=== PATIENT | female | born 1980 | race Caucasian/White ===

== ENCOUNTER → 2016-07-10 | Outpatient (CLI) | payer OTHER ==
[~2016-07-10] MED LIST: BCP
--- NOTE | 2016-07-10 11:09 | Diagnostic Imaging Report ---
INDICATION: Pelvic pain. EXAMINATION: Transabdominal and endovaginal pelvic sonogram. FINDINGS: The uterus measures 10.2 x 6.7 x 4.1 cm. The endometrial stripe is 5 mm. The ovaries are normal in size and have normal blood flow. There is no free fluid. IMPRESSION: Negative pelvic sonogram. Dictated by: Dictated on workstation # [id number]
== END ==
LOC: RAD 10:08
PROVIDERS: ATTEND Nurse Practitioner
DX: M54.9 Dorsalgia, unspecified (principal); R10.2 Pelvic and perineal pain
CPT/HCPCS: 76830; 76856

== ENCOUNTER 2016-09-05 07:59 | Outpatient (CLI) | payer OTHER ==
[~2016-09-05] VITALS: Ht 160 cm; Wt 70.5 kg
[2016-09-05 08:14] VITALS: BP 107/78
[2016-09-05 08:39] LABS: BASOPHILS % (AUTO) 0 % (0-10); EOSINOPHILS # (AUTO) 0.1 10^3/uL (0.0-0.3); EOSINOPHILS % (AUTO) 2 % (0-10); LYMPHOCYTES # (AUTO) 1.8 X 10^3 (1.0-4.0); LYMPHOCYTES % (AUTO) 31 % (12-44); MEAN CORPUSCULAR HEMOGLOBIN 31 PG (25-34); MEAN CORPUSCULAR HGB CONC 34 G/DL (32-36); MEAN CORPUSCULAR VOLUME 93 FL (80-99); MEAN PLATELET VOLUME 10.9 FL (7.4-10.4); MONOCYTES # (AUTO) 0.5 X 10^3 (0.0-1.0); MONOCYTES % (AUTO) 9 % (0-12); NEUTROPHILS # (AUTO) 3.3 X 10^3 (1.8-7.8); NEUTROPHILS % (AUTO) 58 % (42-75); PLATELET COUNT 190 10^3/uL (130-400); RED BLOOD COUNT 4.21 10^6/uL (4.35-5.85); RED CELL DISTRIBUTION WIDTH 12.6 % (10.0-14.5); WHITE BLOOD COUNT 5.7 10^3/uL (4.3-11.0)
== END 2016-09-05 10:06 | disposition home or self-care (01) ==
LOC: PREOP 07:59
PROVIDERS: ATTEND Obstetrics & Gynecology
DX: Z01.812 Encounter for preprocedural laboratory examination (principal); Z11.2 Encounter for screening for other bacterial diseases; N81.4 Uterovaginal prolapse, unspecified
CPT/HCPCS: 36415; 85025; 86850; 86900; 86901; 87081

== ENCOUNTER 2016-09-12 06:30 | Day surgery (SDC) | payer OTHER ==
[~2016-09-12] VITALS: Ht 160 cm; Wt 70.5 kg
[2016-09-12] MEDS ORDERED: ATRACURIUM 50 MG/5 ML (TRACRIUM) IV ONE (06:43)
[2016-09-12 06:45] VITALS: BP 101/77
[2016-09-12] MEDS ORDERED: DEXAMETHASONE PF 10 MG/ML (DECADRON) VIAL ONE (06:46)
[2016-09-12] MEDS ORDERED: LIDOCAINE PF 2% 5 ML (XYLOCAINE) VIAL ONE (06:46)
[2016-09-12] MEDS ORDERED: SEVOFLURANE (ULTANE) 15 ML INHAL SOLN ONE ×7 (06:46→10:00)
[2016-09-12] MEDS ORDERED: HURRICAINE EXT TUBE (BENZOCAINE) ONE (06:46)
[2016-09-12] MEDS ORDERED: proPOfol 200 MG/20 ML (DIPRIVAN) VIAL IV ONE (06:46)
[2016-09-12] MEDS ORDERED: fentaNYL INJECTION 100 MCG/2 ML AMP ONE (06:47)
[2016-09-12] MEDS ORDERED: MIDAZOLAM 2 MG/2 ML (VERSED) VIAL ONE (06:48)
[2016-09-12] MEDS: LACTATED RINGERS 1,000 ML IV PRN ×2 (06:55→09:30)
[2016-09-12] MEDS ORDERED: metroNIDAZOLE 500 MG/100 ML IVPB (PRE-MIX) IV ONE (07:00)
[2016-09-12] MEDS ORDERED: ceFAZolin 1 GM/NS 50 ML IVPB IV ONE ×2 (07:00)
--- NOTE | 2016-09-12 07:01 | Progress Note-Pre Operative ---
Pre-Operative Progress Note H&P Reviewed The H&P was reviewed, patient examined and no changes noted. Date Seen by Provider: Sep 12, 2016 Time Seen by Provider: 07:00 Date H&P Reviewed: Sep 12, 2016 Time H&P Reviewed: 07:00 Pre-Operative Diagnosis: Uterine prolapse, Enlarged uterus, Pelvic pressure CANDIDO LAKE DO Sep 12, 2016 7:01 am
[2016-09-12] MEDS ORDERED: BUPIVACAINE 0.25% 30 ML (SENSORCAINE) VIAL ONE (07:52)
[2016-09-12] MEDS ORDERED: GLYCOPYRROLATE 0.2 MG/ML (ROBINUL) 2 ML VIAL ONE (09:05)
[2016-09-12] MEDS ORDERED: morphine INJ 10 MG/ML 1ML (SYR OR VIAL) ONE (10:02)
[2016-09-12] MEDS ORDERED: LACTATED RINGERS 1,000 ML IV SCH (10:03)
[2016-09-12] MEDS ORDERED: DOCU100C37 PO (10:13)
[2016-09-12] MEDS ORDERED: IBUP-1773 PO (10:13)
[2016-09-12] MEDS ORDERED: HYDR-3816 PO (10:13)
[2016-09-12] MEDS ORDERED: SIME80TA16 PO (10:13)
[2016-09-12] MEDS ORDERED: CHLORASEPTIC LOZENGE MM PRN (10:15)
[2016-09-12] MEDS ORDERED: SIMETHICONE 80 MG (MYLICON) CHEW PO PRN (10:15)
[2016-09-12] MEDS ORDERED: ANTACID SUSP 30 ML UDC (MYLANTA) PO PRN (10:15)
[2016-09-12] MEDS ORDERED: ZOLPIDEM 5 MG (AMBIEN) TAB PO PRN (10:15)
[2016-09-12] MEDS ORDERED: DOCUSATE SODIUM 100 MG (COLACE) CAP PO PRN (10:15)
[2016-09-12] MEDS ORDERED: ONDANSETRON 4 MG/2 ML (SDV) Z0FRAN IV PRN (10:15)
--- NOTE | 2016-09-12 10:15 | Discharge Inst-Women's Service ---
Discharge Inst-Women's Serv Depart Medication/Instructions New, Converted or Re-Newed RX: RX on Chart Consults/Follow Up Additional Follow Up: Yes Orders/Referrals Dr. Sullivan in 7-10 days and 8 weeks Activity Activity: Activity as Tolerated Driving Instructions: No Driving for 1 Week NO SMOKING: NO SMOKING Nothing Inside Vagina: No Douching, No [place], No Tampons Diet Discharge Diet: No Restrictions Symptoms to Report to : Bleeding Excessive, Pain Increased, Fever Over 101 Degrees F, Vaginal Bleeding Increase, Questions/Concerns For Any Problems or Questions: Contact Your Physician Skin/Wound Care Infection Signs and Symptoms: Increased Redness, Foul Odor of Wound, Increased Drainage, Skin Itchy or Has a Rash, Increased Swelling, Temperature Above 101 F Operative Area Clean and Dry: Keep Incision Clean/Dry Stitches/Bren/Dermabond: Dermabond, Care of Stitches Bathing Instructions: CANDIDO Berumen DO Sep 12, 2016 10:15
[2016-09-12] MEDS: morphine INJ 10 MG/ML 1ML (SYR OR VIAL) IVP PRN ×3 (10:22→10:39)
[2016-09-12] MEDS: KETOROLAC 30 MG/ML VIAL IV PRN ×2 (10:27→16:58)
--- NOTE | 2016-09-12 10:32 | Progress Note-Post Operative ---
Post-Operative Progess Note Surgeon (s)/Planer Offbearer (s) Surgeon CANDIDO LAKE DO Planer Offbearer: Gayla OWUSUP Pre-Operative Diagnosis Uterine prolapse, Enlarged uterus, Pelvic pressure Post-Operative Diagnosis RATLH w bilateral salpingectomy Procedure & Operative Findings Date of Procedure 09/12/16 Procedure Performed/Findings see dictation Anesthesia Type GETA Estimated Blood Loss Estimated blood loss (mL): min Specimens/Packing Specimens Removed uterus, tubes, and ovaries CANDIDO LAKE DO Sep 12, 2016 10:32
[2016-09-12] MEDS ORDERED: MEPERIDINE (DEMEROL) INJ 50 MG/ML ONE (10:54)
[2016-09-12] MEDS ORDERED: MEPERIDINE (DEMEROL) INJ 50 MG/ML IVP PRN (11:00)
[2016-09-12 11:30] VITALS: BP 94/65
--- NOTE | 2016-09-12 11:46 | OPERATIVE REPORT ---
DATE OF SERVICE: PREOPERATIVE DIAGNOSES: 1. A 36-year-old female with uterine prolapse. 2. Enlarged uterus. 3. Pelvic pressure. POSTOPERATIVE DIAGNOSES: 1. A 36-year-old female with uterine prolapse. 2. Enlarged uterus. 3. Pelvic pressure. PROCEDURE: Robotic assisted total laparoscopic hysterectomy with bilateral salpingectomy. SURGEON: Dr. Edson Sullivan. ROLLING UP MACHINE OPERATOR: MARISOL Ag whose required assistance was necessary to complete the procedure. ANESTHESIA: General endotracheal. ESTIMATED BLOOD LOSS: Minimal. URINE OUTPUT: 300 mL. PRIOR TO THE PROCEDURE FLUIDS: 1,600 mL lactated ringer solution. FINDINGS: A bulky and hyperemic appearing uterus which is grossly normal, a degree of prolapse down to the level of the fascial introitus, grossly normal appearing bilateral ovaries, grossly normal appearing bilateral fallopian tubes, grossly normal appearing upper abdominal anatomy on brief scan of evaluation. SPECIMENS SENT: Uterus, bilateral fallopian tubes. INDICATIONS FOR PROCEDURE: This 36-year-old female was a consultation in my office from Gayla Jean-Baptiste, our nurse practitioner, for ongoing issues with pelvic pressure, pain with intercourse, and prolapse that was found on her annual exam. The patient had been extensively counseled about alternatives includes pessary replacement; however due to her age and her sexual activity, pessary replacement was not a good option for her and her lifestyle. We also discussed with the patient hysterectomy with colposuspension technique at the time of hysterectomy. Risk of this procedure was discussed with the patient. Details included the risk of bleeding, infection, damage to surrounding structures including but not limited to bowel, bladder, ureter, kidneys, risks from anesthesia, risks for need for blood transfusion, postoperative hematoma formation, DVT formation, fistula formation and even . After everything was discussed with the patient in detail, all of her questions were answered with her and her present, consent was obtained. The patient was taken to the operative room. OPERATIVE REPORT IN DETAIL: The patient was taken to the operating room. General anesthesia was found to be adequate, was placed in the dorsal lithotomy position, prepped and draped in the normal sterile fashion. A Amaya catheter was placed using sterile technique. A weighted speculum was inserted into the patient's vagina. A right angle retractor is used to visualize the cervix, grasped at the 12 o'clock position using a long Allis clamp. I then gently sounded the uterine cavity. It was found to be 8 cm and gently dilated the cervix using Hegar dilators. I then selected 8 cm Hilaria uterine manipulator tip and a 4 cm colpotomy ring and placed it within the uterine cavity deploying the intrauterine balloon and advancing the colpotomy ring around the vaginal fornix. Once this was in place, excellent uterine manipulation was noted on bimanual examination. I then performed a change of gloves and directed by attention to the abdomen where infraumbilical area infiltrated using 1/4% Marcaine, made an 8 mm incision and directed a Veress needle through this incision until intraperitoneal placement was confirmed using the saline drop test. I then proceeded with insufflation using CO2 gas. The open pressure was 30 mmHg. I proceed to a maximum pressure of 50 mmHg at which point I removed the Veress needle and introduced an 8 mm blunt Di Gabrielle camera trocar. Once this was in place, I am able to confirmed intraperitoneal placement using the Di Gabrielle laparoscope. I then placed 2 lateral trocars using both 8 mm trocars. The skin is infiltrated using 1/4% Marcaine approximately 8 cm lateral to my infraumbilical trocar. Incisions are made using the knife and trocars are placed under direct visualization laparoscopically. Once the trocars are in place, I had the patient placed in a steep Trendelenburg in order to visualize all adequate anatomy to perform the procedure as scheduled. I then brought in the Da Gabrielle robot and docked in appropriate fashion placing the Da Heatmaps vessel sealer in the left hand and the monopolar tatiana in the right hand. I then performed the following dissection bilaterally at the operative console. Starting at the mesosalpinx, I created a hole in this using monopolar tatiana and directed this hole laterally amputating the fallopian tube from the mesosalpinx and its surrounding blood supply using the vessel sealer. I then grasped the uteroovarian ligament, bipolar cauterizing it using the vessel sealer. I grabbed the round ligament, bipolar cauterized this and transected it using the vessel sealer. I then grabbed the broad ligament and bipolar cauterized this and transected it using the vessel sealer down to the level of the lower uterine segment at which point I the anterior and posterior leaflets of the broad ligament. The anterior leaflet was taken around to the anterior vaginal fornix. The posterior leaflet was taken around the posterior vaginal fornix. This allows me to skeletonized the uterine vessels bilaterally and bipolar cauterized them and transected them using the vessel sealer. I then performed a colpotomy at the 12 o'clock position and able to visualize the Hilaria colpotomy ring. I take this around the colpotomy ring using monopolar ttaiana, amputating the cervix away from the vaginal fornix. The entire specimen was then removed through the vagina. I then proceeded with closing the vaginal opening. The lateral vaginal apices of the vaginal cuff are closed using 2-0 Vicryl suture in a figure of eight fashion. Colposuspension them to the uterosacral ligaments. I then closed the remainder of the vaginal cuff using 2-0 V lock in normal fashion after which there was no active bleeding noted from the dissection planes. I removed the Da Gabrielle instruments, the needles, and undocked the Da Gabrielle robot and proceeded with the remainder of the case laparoscopically. I copiously irrigated the pelvis using normal saline. There was no active bleeding noted from any dissection planes. I put FloSeal hemostatic agent over my planes of dissection and had the patient taken out of steep Trendelenburg where I removed insufflation to the infraumbilical trocar after removing the lateral trocars under direct visualization laparoscopically. I then introduced 10 mL of 1/4% Marcaine into the intraperitoneal cavity for postoperative pain management and removed the infraumbilical trocar. I then closed the skin incision using 4-0 Monocryl in interrupted subcuticular stitches. Dermabond was applied to the incision and Band-Aids were placed over these. The patient tolerated the procedure well, sent to recovery in stable condition with Amaya catheter still in place. Lap and sponge counts correct at the end of the procedure. Instrument count was correct as well. 1 gram of Ancef and 500 mg of Flagyl given preoperatively for infection prophylaxis. Job ID: [id number] DocumentID: [id number] Dictated Date: 09/12/2016 10:39:05 Feeder Worker Power Unit Operator Date: 09/12/2016 11:45:54 Dictated By: DO PIERRE WADE
[2016-09-12 12:15] VITALS: BP 93/60
[2016-09-12] MEDS: HYDROcodone/APAP 7.5 MG/325 MG (LORTAB, LORCET PLUS) TABLET PO PRN ×3 (13:24→19:19)
[2016-09-12 13:40] VITALS: BP 99/66
[2016-09-12 17:00] VITALS: BP 92/61
[2016-09-13] MEDS ORDERED: IBUPROFEN 600 MG (MOTRIN) TAB PO PRN (02:45)
--- OUTSIDE RECORDS SUMMARY | 2016-09-17 19:47 | XMS REPORT | Continuity of Care Document ---
Author Author [facility] Organization [facility] Address Unknown Phone Unavailable Allergies Active Description Code Type Severity Reaction Onset Reported/Identified Relationship to Patient Clinical Status Yes promethazine [id number] Drug Allergy Unknown N/A 08/25/2013 Yes promethazine [id number] Drug Allergy Moderate EPS 09/05/2016 Medications Problems Date Dx Coded Attending Type Code Diagnosis Diagnosed By 08/25/2013 NANDA BECK DO Ot 785.1 PALPITATIONS 08/25/2013 NANDA BECK DO Ot 786.59 CHEST PAIN NEC 11/23/2013 NANDA EBCK DO Ot 785.1 PALPITATIONS 05/13/2014 MIKKI DAVIES MD Ot 780.60 05/13/2014 MIKKI DAVIES MD Ot 786.50 06/23/2014 Ot 782.62 07/18/2014 KING MIXON Ot 625.8 07/18/2014 LUCIA MONTERO, WALESKA Youngblood Ot 530.81 07/18/2014 WALESKA MYERS MD Ot 786.05 07/18/2014 WALESKA MYERS MD Ot 789.06 07/18/2014 Ot 785.1 07/18/2014 WALESKA MYERS MD Ot 793.11 07/18/2014 MIKKI DAVIES MD Ot 780.60 07/18/2014 MIKKI DAVIES MD Ot 786.50 07/18/2014 Ot 782.62 08/04/2014 KING MIXON Ot 611.72 09/08/2014 MIKKI DAVIES MD Ot 780.60 09/08/2014 MIKKI DAVIES MD Ot 786.50 02/10/2015 Ot 782.62 05/24/2015 MIKKI DAVIES MD Ot 780.60 05/24/2015 MIKKI DAVIES MD Ot 786.50 05/24/2015 Ot 782.62 05/24/2015 [facility] Ot 611.72 08/04/2015 ORAL, KING Ram[facility] ATTEND[facility] Ot R53.83 OTHER FATIGUE 07/08/2016 ORAL [facility] ATTENDANT Ot 625.8 FEM GENITAL SYMPTOMS NEC 07/08/2016 LUCIA MONTERO, WALESKA Youngblood Ot 530.81 ESOPHAGEAL REFLUX 07/08/2016 LUCIA MONTERO, WALESKA Youngblood Ot 786.05 SHORTNESS OF BREATH 07/08/2016 LUCIA MONTERO, WALESKA Youngblood Ot 789.06 ABDOMINAL PAIN, EPIGASTRIC 07/08/2016 Ot 785.1 PALPITATIONS 07/08/2016 WALESKA MYERS MD Ot 793.11 SOLITARY PULMONARY NODULE 07/08/2016 MIKKI DAVIES MD Ot 780.60 FEVER, UNSPECIFIED 07/08/2016 MIKKI DAVIES MD Ot 786.50 CHEST PAIN NOS 07/08/2016 Ot 782.62 FLUSHING 07/10/2016 MIKKI DAVIES MD Ot 780.60 FEVER, UNSPECIFIED 07/10/2016 MIKKI DAVIES MD Ot 786.50 CHEST PAIN NOS 07/10/2016 Ot 782.62 FLUSHING 07/10/2016 ORAL [facility] ATTENDANT Ot 611.72 LUMP OR MASS IN BREAST 07/10/2016 [facility] M[facility] ATTENDANT Ot R53.83 OTHER FATIGUE 07/12/2016 QUICK, KING [facility] ATTEND[facility] Ot M54.9 DORSALGIA, UNSPECIFIED 07/12/2016 QUICK, KING W [facility] ATTENDANT Ot R10.2 PELVIC AND PERINEAL PAIN 08/09/2016 QUICK, KING W [facility] ATTENDANT Ot M54.9 DORSALGIA, UNSPECIFIED 08/09/2016 QUICK, KING W [facility] ATTENDANT Ot R10.2 PELVIC AND PERINEAL PAIN 09/05/2016 MIKKI DAVIES MD Ot 780.60 FEVER, UNSPECIFIED 09/05/2016 MIKKI DAVIES MD Ot 786.50 CHEST PAIN NOS 09/05/2016 Ot 782.62 FLUSHING 09/05/2016 QUICK, KING [facility] ATTENDANT Ot 611.72 LUMP OR MASS IN BREAST 09/05/2016 QUICK, KING [facility] ATTENDANT Ot R53.83 OTHER FATIGUE 09/05/2016 QUICK, KING [facility] ATTENDANT Ot M54.9 DORSALGIA, UNSPECIFIED 09/05/2016 ORAL KINGRubina DAMON Ot R10.2 PELVIC AND PERINEAL PAIN 09/05/2016 Ot 785.1 PALPITATIONS 09/11/2016 CANDIDO LAKE DO Ot N81.4 UTEROVAGINAL PROLAPSE, UNSPECIFIED 09/11/2016 CANDIDO LAKE DO Ot Z01.812 ENCOUNTER FOR PREPROCEDURAL LABORATORY E 09/11/2016 CANDIDO LAKE DO Ot Z11.2 ENCOUNTER FOR SCREENING FOR OTHER BACTER Procedures Results Test Result Range Complete blood count (CBC) with automated white blood cell (WBC) differential - 09/05/16 08:25 Blood leukocytes automated count (number/volume) 5.7 10*3/ uL 4.3-11.0 Blood erythrocytes automated count (number/volume) 4.21 10*6 /uL 4.35-5.85 Venous blood hemoglobin measurement (mass/volume) 13.2 g/dL 11.5-16.0 Blood hematocrit (volume fraction) 39 % 35-52 Automated erythrocyte mean corpuscular volume 93 [foz_us] 80-99 Automated erythrocyte mean corpuscular hemoglobin (mass per erythrocyte) 31 pg 25-34 Automated erythrocyte mean corpuscular hemoglobin concentration measurement ( mass/volume) 34 g/dL 32-36 Automated erythrocyte distribution width ratio 12.6 % 10.0-14.5 Automated blood platelet count (count/volume) 190 10*3/uL 130-400 Automated blood platelet mean volume measurement 10.9 [foz_ us] 7.4-10.4 Automated blood neutrophils/100 leukocytes 58 % 42-75 Automated blood lymphocytes/100 leukocytes 31 % 12-44 Blood monocytes/100 leukocytes 9 % 0-12 Automated blood eosinophils/100 leukocytes 2 % 0-10 Automated blood basophils/100 leukocytes 0 % 0-10 Blood neutrophils automated count (number/volume) 3.3 10*3 1.8-7.8 Blood lymphocytes automated count (number/volume) 1.8 10*3 1.0-4.0 Blood monocytes automated count (number/volume) 0.5 10*3 0.0-1.0 Automated eosinophil count 0.1 10*3/uL 0.0-0.3 Automated blood basophil count (count/volume) 0.0 10*3/uL 0.0-0.1 Blood type T Indirect antibody screen panel - 09/05/16 08:25 ABO+Rh group AP NRG Blood group antibody screen NEGATIVE NRG Methicillin resistant Staphylococcus aureus (MRSA) screening culture - 08:25 Methicillin resistant Staphylococcus aureus (MRSA) screening culture NEG NRG Urine beta human chorionic gonadotropin (hCG) measurement - 09/12/16 06:40 Urine beta human chorionic gonadotropin (hCG) measurement NEGATIVE NEGATIVE Blood type T Indirect antibody screen panel - 09/12/16 07:20 ABO+Rh group AP NRG Transfusion band number [id number] NRG Blood group antibody screen NEGATIVE NRG Encounters ACCT No. Visit Date/Time Discharge Status Pt. Type Provider Facility Loc./Unit Complaint [id number] 09/12/2016 06:30:00 2016 19:55:00 DIS Outpatient CANDIDO LAKE DO [facility] SDC UTERINE PROLAPSE [id number] 09/05/2016 07:59:00 2016 10:06:00 DIS Outpatient CANDIDO LAKE DO [facility] PREOP ROBOTIC ASS.TOTAL HYSTERECTOMY [id number] 07/19/2014 07:41:00 2014 23:59:59 CLS Outpatient KING MIXON [facility] RAD LUMP [id number] 04/29/2014 08:09:00 2014 23:59:59 CLS Outpatient MIKKI DAVIES MD [facility] RAD FEVER LEFT CHEST PAIN [id number] 01/18/2014 08:55:00 2013 23:59:59 CLS Outpatient WALESKA MYERS MD [facility] RAD 5MM NODULE [id number] 08/25/2013 11:25:00 2013 00:01:00 DIS Outpatient NANDA BECK DO [facility] CARD PALPITATIONS [id number] 09/03/2013 11:13:00 2013 23:59:59 CLS Outpatient WALESKA MYERS MD [facility] RAD EPIGASTRIC PAIN [id number] 08/25/2013 08:06:00 2013 10:33:00 DIS Emergency NANDA BECK DO [facility] ER CHEST HEAVINESS [id number] 03/16/2013 10:59:00 2012 23:59:59 CLS Outpatient KING MIXON [facility] RAD PELVIC PAIN [id number] 07/10/2016 10:08:00 ACT Outpatient KING MIXON [facility] RAD BACK PAIN, PELVIC PAIN [id number] 05/24/2015 08:07:00 ACT Outpatient KING MIXON [facility] LAB [id number] 07/18/2014 13:10:00 Document Registration [id number] 06/01/2014 14:14:00 Document Registration
== END 2016-09-12 19:55 | disposition home or self-care (01) ==
LOC: SDC 06:30 → WS 11:32 → SDC 19:55
PROVIDERS: ATTEND Obstetrics & Gynecology
DX: N81.4 Uterovaginal prolapse, unspecified (principal); N94.89 Other specified conditions associated with female genital organs and menstrual cycle; N94.12 Deep dyspareunia; N81.89 Other female genital prolapse
CPT/HCPCS: 84703; 88307; 96361; 96375

== ENCOUNTER → 2017-01-03 | Outpatient (CLI) | payer OTHER ==
[~2017-01-03] MED LIST changes: +DOCU100C37 PO; +HYDR-3816 PO; +IBUP-1773 PO; +SIME80TA16 PO
--- NOTE | 2017-01-03 15:49 | Diagnostic Imaging Report ---
PROCEDURE: US PELVIC (NON OB) TECHNIQUE: Multiple real-time grayscale images were obtained over the pelvis in various projections transabdominally. IMPRESSION: Pelvic pain with dyspareunia. Previous hysterectomy. FINDINGS: Right ovary measures 2.4 x 2.8 x 2.9 cm. Small cyst in the right ovary measures 1.3 cm. The left ovary measures 2.6 x 1.6 x 2.3 cm. There is normal blood flow to both ovaries. There is no free fluid. No adnexal mass. IMPRESSION: Simple-appearing 1.3 cm cyst in the right ovary. No other abnormalities noted. Dictated by: Dictated on workstation # [id number]
== END ==
LOC: RAD 14:56
PROVIDERS: ATTEND Obstetrics & Gynecology
DX: N83.201 Unspecified ovarian cyst, right side (principal); N94.89 Other specified conditions associated with female genital organs and menstrual cycle; N94.19 Other specified dyspareunia
CPT/HCPCS: 76856

== ENCOUNTER → 2017-04-10 | Outpatient (CLI) | payer OTHER ==
--- NOTE | 2017-04-10 13:09 | Diagnostic Imaging Report ---
EXAMINATION: Ultrasound of the right breast. INDICATION: Right breast mass. FINDINGS: By history, the patient has a palpable abnormality in the medial aspect of the right breast. The ultrasound examination of this area shows no discrete mass. I suspect that the palpable abnormality in question may be related to fibroglandular tissue alone. It may prove worthwhile to obtain a 1 view mammogram of the right breast to assure that there are no suspicious microcalcifications in this area, however. The remainder of the right breast is unremarkable for any abnormality. IMPRESSION: 1. There is no mass or cyst in the region of the patient's palpable abnormality in the medial aspect of the right breast. Recommendations as above. 2. These results were discussed with Dr. Sullivan. ACR BI-RADS Category 0: Incomplete. (Needs additional imaging evaluation). Dictated by: Dictated on workstation # [id number]
--- NOTE | 2017-04-10 15:44 | Diagnostic Imaging Report ---
INDICATION: Right breast lump. EXAMINATION: Bilateral digital screening mammogram with CAD. The current study was also evaluated with a Computer Aided Detection (CAD) system. COMPARISON: This study was compared with the prior exam of 07/19/2014. FINDINGS: Reportedly, the patient has a palpable abnormality in the medial aspect of the right breast. The ultrasound examination performed earlier today failed to show any discrete solid or cystic mass. This study was recommended to determine if there are any suspicious microcalcifications in the area of concern. On this exam, a marker was placed over the area of concern. There is no primary or secondary sign of malignancy noted. In particular, there is no group of abnormal calcifications. The overall appearance of the right breast has not changed significantly since the prior exam. The fibroglandular tissue in the right breast is dense and there are a few scattered benign-appearing calcifications in the lateral aspect of the breast. IMPRESSION: There is no evidence for malignancy. ACR BI-RADS Category 1: Negative. Result letter will be mailed to the patient. Note: At least 10% of breast cancer is not imaged by mammography. Dictated by: Dictated on workstation # [id number]
== END ==
LOC: RAD 10:24
PROVIDERS: ATTEND Obstetrics & Gynecology
DX: N63.10 Unspecified lump in the right breast, unspecified quadrant (principal)
CPT/HCPCS: 76641

== ENCOUNTER → 2017-10-02 | Outpatient (CLI) | payer OTHER ==
[~2017-10-02] MED LIST changes: +HYDR-34 PO; -HYDR-3816 PO
[2017-10-02 17:33] LABS: BASOPHILS % (AUTO) 0 % (0-10); EOSINOPHILS # (AUTO) 0.2 10^3/uL (0.0-0.3); EOSINOPHILS % (AUTO) 2 % (0-10); HEMATOCRIT 39 % (35-52); HEMOGLOBIN 13.6 G/DL (11.5-16.0); LYMPHOCYTES # (AUTO) 2.5 X 10^3 (1.0-4.0); LYMPHOCYTES % (AUTO) 29 % (12-44); MEAN CORPUSCULAR HEMOGLOBIN 31 PG (25-34); MEAN CORPUSCULAR HGB CONC 35 G/DL (32-36); MEAN CORPUSCULAR VOLUME 90 FL (80-99); MEAN PLATELET VOLUME 10.7 FL (7.4-10.4); MONOCYTES # (AUTO) 0.8 X 10^3 (0.0-1.0); MONOCYTES % (AUTO) 9 % (0-12); NEUTROPHILS # (AUTO) 5.2 X 10^3 (1.8-7.8); NEUTROPHILS % (AUTO) 60 % (42-75); PLATELET COUNT 206 10^3/uL (130-400); RED BLOOD COUNT 4.36 10^6/uL (4.35-5.85); RED CELL DISTRIBUTION WIDTH 12.7 % (10.0-14.5); WHITE BLOOD COUNT 8.7 10^3/uL (4.3-11.0)
[2017-10-02 17:54] LABS: ALANINE AMINOTRANSFERASE 13 U/L (0-55); ALBUMIN 4.7 GM/DL (3.2-4.5); ALKALINE PHOSPHATASE 49 U/L (40-136); BILIRUBIN,TOTAL 0.6 MG/DL (0.1-1.0); BUN/CREATININE RATIO 18; CALCIUM 9.5 MG/DL (8.5-10.1); CARBON DIOXIDE 27 MMOL/L (21-32); CHLORIDE 103 MMOL/L (98-107); CREATININE SERUM 0.82 MG/DL (0.60-1.30); GFR ESTIMATED > 60; GLUCOSE 90 MG/DL (70-105); POTASSIUM 3.8 MMOL/L (3.6-5.0); SODIUM 138 MMOL/L (135-145); TOTAL PROTEIN 7.6 GM/DL (6.4-8.2)
--- NOTE | 2017-10-07 14:49 | Physician Query-Final Dx ---
PORFIRIO NOLAND 10/07/17 1449: Clinic Account Progress/Dx Physician Query: Please give diagnosis Date of Service Oct 02, 2017 at 17:17 Progress Note: Porfirio [phone] MIKKI DAVIES MD 10/16/17 1343: Clinic Account Progress/Dx DIAGNOSIS: Diagnosis nausea PORFIRIO NOLAND Oct 07, 2017 14:49 MIKKI DAVIES MD Oct 16, 2017 13:43
== END ==
LOC: LAB 17:17
PROVIDERS: ATTEND Internal Medicine Hematology & Oncology
DX: R10.84 Generalized abdominal pain (principal); R11.0 Nausea
CPT/HCPCS: 36415; 80053; 85025

== ENCOUNTER → 2020-05-11 | Outpatient (CLI) | payer OTHER ==
--- NOTE | 2020-05-11 16:59 | Diagnostic Imaging Report ---
INDICATION: Right upper quadrant pain. EXAMINATION: KUB at 02:28 p.m. FINDINGS: Gallbladder appears to be surgically absent. Bowel gas pattern is normal. There are no pathologic masses or calcifications. IMPRESSION: Unremarkable abdomen. Dictated by: Dictated on workstation # [id number]
== END ==
LOC: RAD 13:46
PROVIDERS: ATTEND Family Medicine
DX: R10.11 Right upper quadrant pain (principal)
CPT/HCPCS: 74018

== ENCOUNTER → 2020-05-24 | Outpatient (CLI) | payer OTHER ==
[~2020-05-24] MED LIST changes: +CATHETER FLUSH 10 ML SYR IV PRN; +HOLD METFORMIN - RECEIVED CONTRAST 20 ML VIAL IV SCH; +IOHEXOL 350 MG/ML 100 ML (OMNIPAQUE 350) VIAL IV ONE; +NS 100 ML (IVPB) BAG IV ONE
--- NOTE | 2020-05-24 08:21 | Diagnostic Imaging Report ---
PROCEDURE: CT abdomen and pelvis with contrast. TECHNIQUE: Multiple contiguous axial images were obtained through the abdomen and pelvis after administration of intravenous contrast. Auto Exposure Controls were utilized during the CT exam to meet ALARA standards for radiation dose reduction. All CT scans use one or more of the following dose optimizing techniques: automated exposure control, MA and/or KvP adjustment based on patient size and exam type or iterative reconstruction. INDICATION: Right upper quadrant pain. No prior studies are available for comparison. The lung bases are clear. No discrete liver mass is detected. Gallbladder surgically absent. No biliary ductal dilatation is seen. Pancreas and spleen are unremarkable. No adrenal mass is detected. Kidneys are unremarkable. No hydronephrosis is identified. Aorta is nonaneurysmal. Bowel loops are normal caliber. There is no obstruction. Appendix is visualized and unremarkable. No inflammatory changes are seen. Bladder is decompressed. There appears to be a small cyst involving the right ovary measuring 16 mm. Bony structures are nonacute. IMPRESSION: Small right ovarian cyst. No acute feature in the abdomen or pelvis is identified. Dictated by: Dictated on workstation # [id number]
== END ==
LOC: RAD 07:45
PROVIDERS: ATTEND Family Medicine
DX: R10.11 Right upper quadrant pain (principal); N83.201 Unspecified ovarian cyst, right side; Z90.49 Acquired absence of other specified parts of digestive tract
CPT/HCPCS: 74177

== ENCOUNTER → 2021-01-15 | Outpatient (CLI) | payer OTHER ==
[~2021-01-15] MED LIST changes: -CATHETER FLUSH 10 ML SYR IV PRN; -HOLD METFORMIN - RECEIVED CONTRAST 20 ML VIAL IV SCH; -IOHEXOL 350 MG/ML 100 ML (OMNIPAQUE 350) VIAL IV ONE; -NS 100 ML (IVPB) BAG IV ONE
--- NOTE | 2021-01-15 18:38 | Diagnostic Imaging Report ---
EXAM: Digital mammogram, bilateral screening. COMPARISON: This study was compared to the prior exam of the right breast performed on 04/10/2017 and 07/19/2014. There are no previous studies of the left breast available for comparison. At this time, there are no current complaints. FINDINGS: The fibroglandular tissue in both breasts is heterogeneously dense. This does limit the sensitivity of this exam. The previous study did show a few scattered microcalcifications in the lateral aspect of the right breast. Those findings are again evident on this exam. The microcalcifications do seem somewhat more conspicuous on this exam than on the previous study but I am not certain that they have changed significantly. I would recommend that a compression/magnification view of these microcalcifications be obtained in the CC and MLO projections as well as a true lateral view of the right breast for further study. There is no primary or secondary sign of malignancy noted in the left breast. IMPRESSION:.. Additional mammographic views of the right breast would be recommended for further study. ACR category 0 ACR BI-RADS Category 0: Incomplete. (Needs additional imaging evaluation). Result letter will be mailed to the patient. Note: At least 10% of breast cancer is not imaged by mammography. Dictated by: Dictated on workstation # [id number]
== END ==
LOC: RAD 15:30
PROVIDERS: ATTEND Obstetrics & Gynecology
DX: Z12.31 Encounter for screening mammogram for malignant neoplasm of breast (principal)
CPT/HCPCS: 77063; 77067

== ENCOUNTER → 2021-01-24 | Outpatient (CLI) | payer OTHER ==
--- NOTE | 2021-01-25 10:11 | Diagnostic Imaging Report ---
EXAMINATION: Unilateral diagnostic right mammogram with CAD. INDICATION: Abnormal screening mammogram. FINDINGS: The recent screening mammogram performed on 01/15/2021 noted a few microcalcifications in the lateral aspect of the right breast at mid depth. These microcalcifications did seem more conspicuous than on the previous exam of 04/10/2017. The magnification/compression views of these microcalcifications show that they do not have a particularly aggressive appearance nor are they tightly clustered; however, they are fairly numerous. The possibility of a low-grade malignancy, such as DCIS, should be considered. I would recommend that a stereotactic biopsy be performed for further evaluation. IMPRESSION: 1. The microcalcifications in the lateral aspect of the right breast do not have a particularly threatening appearance but they are technically indeterminate. A stereotactic biopsy would be recommended to exclude malignancy. 2. These results were discussed with Dr. Edson Sullivan. ACR BI-RADS Category 4: Suspicious abnormality. Result letter will be mailed to the patient. Note: At least 10% of breast cancer is not imaged by mammography. Dictated by: Dictated on workstation # [id number]
== END ==
LOC: RAD 12:45
PROVIDERS: ATTEND Obstetrics & Gynecology
DX: R92.0 Mammographic microcalcification found on diagnostic imaging of breast (principal)
CPT/HCPCS: 77065; G0279

== ENCOUNTER → 2021-02-07 | Outpatient (CLI) | payer OTHER ==
[~2021-02-07] VITALS: Ht 162.6 cm; Wt 72.7 kg
[~2021-02-07] MED LIST changes: +LIDOCAINE 1% INJ 20 ML 20 ML VIAL INJ ONE; +LIDOCAINE 1% INJ 20 ML 20 ML VIAL ONE
--- NOTE | 2021-02-07 14:49 | Diagnostic Imaging Report ---
Indication: Right breast calcifications. Patient presents for stereotactic biopsy. Patient brought to stereotatic suite and placed on the chair in the upright position. Right breast was positioned lateral medial. Calcifications in the lower outer right breast were stereotactically targeted. Tomographic technique was also utilized. Lateral right breast was then prepped and draped in usual sterile fashion. Small amount of 1% lidocaine was utilized for local anesthesia. A 8 gauge vacuum-assisted stereotactic needle was advanced in place per stereotactic coordinates. Additional lidocaine was administered. 4 core biopsies were obtained and specimen radiograph was obtained. Specimen radiograph showed only a few calcification. Therefore, four additional core biopsies were obtained. Additional specimen radiograph was obtained. There appear to be calcifications located in core sample labeled #4 as well as #8 and #9. A marker clip was deployed. All images were viewed on dedicated workstation. Needle was removed and hemostasis was obtained. Follow-up 2-D CC and lateral medial mammography was then performed. Follow-up mammography does show marker clip in the lower outer right breast. IMPRESSION: Stereotactic biopsy of calcification lower right breast utilizing vacuum-assisted device. Pathology results are currently pending. Dictated by: Dictated on workstation # [id number]
== END ==
LOC: RAD 13:15
PROVIDERS: ATTEND Obstetrics & Gynecology
DX: R92.0 Mammographic microcalcification found on diagnostic imaging of breast (principal)
CPT/HCPCS: 19081; A4648